=== PATIENT | male | born 1970 | race Caucasian/White ===

== ENCOUNTER → 2020-01-16 11:45 | Outpatient (BNVA) | payer SELFPAY | PROVIDERS: PCP Family Medicine; Referring Provider Family Medicine; Visit Provider Nurse Practitioner Family | DX: R09.81 Nasal congestion (principal); J98.8 Other specified respiratory disorders; B97.89 Other viral agents as the cause of diseases classified elsewhere | CPT/HCPCS: 87804 ==

== ENCOUNTER 2020-09-21 07:56 | Outpatient (CLI) | payer MEDICAID, SELFPAY ==
[2020-09-21] MEDS: iohexol 300 mg/mL 100 mL Btl IV (08:19)
--- NOTE | 2020-09-21 14:00 | CT_ITS ---
WS: [id number] CT CHEST TECHNIQUE: Contrast enhanced CT of the chest with coronal and sagittal reformatted images. CLINICAL INFORMATION: pericardial cyst COMPARISON: CT 8 19,019 DLP: 1034.[address] scans at [facility] use at least one of these dose optimization techniques: automat ed exposure control; mA and/or kV adjustment per patient size (includes targeted exams where dose is matched to clinical indication); or iterative reconstruction. FINDINGS: Stable focal nodule right upper lobe measuring 5.4 mm along the right minor fissure anteriorly unchan ged. Previously described pericardial cyst is also unchanged. This measures approximately 15.1 x 10.4 x 5.2 CCM. No acute pulmonary infiltrates. No focal pneumonia or pleural fluid. No mediastinal or hilar lymphadenopathy. Thyroid appears normal. No axillary lymphadenopathy. Diffuse fatty infiltration of the liver. Normal thoracic spine. CT/CT chest w con* [id number] IMPRESSION: 1. 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 2. Stable nodule along the right minor fissure anteriorly also unchanged measu ring 5.4 mm. 3. No other significant changes from previous. 4. Diffuse fatty infiltration liver.
== END 2020-09-21 07:57 | disposition home or self-care (01) ==
LOC: CT 08:02
PROVIDERS: Visit Provider Thoracic Surgery (Cardiothoracic Vascular Surgery)
DX: Q24.8 Other specified congenital malformations of heart (principal); K76.0 Fatty (change of) liver, not elsewhere classified
CPT/HCPCS: 71260

== ENCOUNTER → 2020-12-09 08:40 | Outpatient (BNVA) | payer MEDICAID, SELFPAY | PROVIDERS: Visit Provider Social Worker Clinical | DX: F41.1 Generalized anxiety disorder (principal) | CPT/HCPCS: 90834 ==

== ENCOUNTER → 2020-12-16 09:16 | Outpatient (BNVA) | payer MEDICAID, SELFPAY | PROVIDERS: Visit Provider Social Worker Clinical | DX: F41.1 Generalized anxiety disorder (principal) | CPT/HCPCS: 90834 ==

== ENCOUNTER → 2020-12-29 07:38 | Outpatient (BNVA) | payer MEDICAID, SELFPAY | PROVIDERS: Visit Provider Social Worker Clinical | DX: F41.1 Generalized anxiety disorder (principal) | CPT/HCPCS: 90834 ==

== ENCOUNTER → 2021-01-12 08:27 | Outpatient (BNVA) | payer MEDICAID, SELFPAY | PROVIDERS: Visit Provider Social Worker Clinical | DX: F41.1 Generalized anxiety disorder (principal) | CPT/HCPCS: 90834 ==

== ENCOUNTER → 2021-01-25 08:06 | Outpatient (BNVA) | payer MEDICAID, SELFPAY | PROVIDERS: Visit Provider Social Worker Clinical | DX: F41.1 Generalized anxiety disorder (principal) | CPT/HCPCS: 90834 ==

== ENCOUNTER → 2021-02-08 08:11 | Outpatient (BNVA) | payer MEDICAID, SELFPAY | PROVIDERS: Visit Provider Social Worker Clinical | DX: F41.1 Generalized anxiety disorder (principal) | CPT/HCPCS: 90834 ==

== ENCOUNTER → 2021-02-25 13:13 | Outpatient (BNVA) | payer MEDICAID, SELFPAY | PROVIDERS: Visit Provider Social Worker Clinical | DX: F41.1 Generalized anxiety disorder (principal) | CPT/HCPCS: 90834 ==

== ENCOUNTER → 2021-03-08 11:17 | Outpatient (BNVA) | payer MEDICAID, SELFPAY | PROVIDERS: Visit Provider Social Worker Clinical | DX: F41.1 Generalized anxiety disorder (principal) | CPT/HCPCS: 90834 ==

== ENCOUNTER → 2021-03-22 10:05 | Outpatient (BNVA) | payer MEDICAID, SELFPAY | PROVIDERS: Visit Provider Social Worker Clinical | DX: F41.1 Generalized anxiety disorder (principal) | CPT/HCPCS: 90834 ==

== ENCOUNTER → 2021-04-05 07:45 | Outpatient (BNVA) | payer MEDICAID, SELFPAY | PROVIDERS: Visit Provider Social Worker Clinical | DX: F41.1 Generalized anxiety disorder (principal) | CPT/HCPCS: 90834 ==

== ENCOUNTER → 2021-04-21 08:20 | Outpatient (BNVA) | payer MEDICAID, SELFPAY | PROVIDERS: Visit Provider Social Worker Clinical | DX: F41.1 Generalized anxiety disorder (principal) | CPT/HCPCS: 90834 ==

== ENCOUNTER → 2021-05-19 11:43 | Outpatient (BNVA) | payer OTHER, SELFPAY | PROVIDERS: Visit Provider Social Worker Clinical | DX: F41.1 Generalized anxiety disorder (principal) | CPT/HCPCS: 90834 ==

== ENCOUNTER → 2021-06-08 11:52 | Outpatient (BNVA) | payer OTHER, SELFPAY | PROVIDERS: Visit Provider Social Worker Clinical | DX: F41.1 Generalized anxiety disorder (principal) | CPT/HCPCS: 90834 ==

== ENCOUNTER → 2021-06-29 07:39 | Outpatient (BNVA) | payer OTHER, SELFPAY | PROVIDERS: Visit Provider Social Worker Clinical | DX: F41.1 Generalized anxiety disorder (principal) | CPT/HCPCS: 90834 ==

== ENCOUNTER → 2021-07-13 08:41 | Outpatient (BNVA) | payer OTHER, SELFPAY | PROVIDERS: Visit Provider Social Worker Clinical | DX: F41.1 Generalized anxiety disorder (principal) | CPT/HCPCS: 90834 ==

== ENCOUNTER → 2021-07-29 08:29 | Outpatient (BNVA) | payer OTHER, SELFPAY | PROVIDERS: Visit Provider Social Worker Clinical | DX: F41.1 Generalized anxiety disorder (principal) | CPT/HCPCS: 90834 ==

== ENCOUNTER → 2021-08-11 07:35 | Outpatient (BNVA) | payer OTHER, SELFPAY | PROVIDERS: Visit Provider Social Worker Clinical | DX: F41.1 Generalized anxiety disorder (principal) | CPT/HCPCS: 90834 ==

== ENCOUNTER → 2021-08-26 08:25 | Outpatient (BNVA) | payer OTHER, SELFPAY | PROVIDERS: Visit Provider Social Worker Clinical | DX: F41.1 Generalized anxiety disorder (principal) | CPT/HCPCS: 90834 ==

== ENCOUNTER → 2021-09-09 09:46 | Outpatient (BNVA) | payer OTHER, SELFPAY | PROVIDERS: Visit Provider Social Worker Clinical | DX: F41.1 Generalized anxiety disorder (principal) | CPT/HCPCS: 90834 ==

== ENCOUNTER → 2021-09-23 08:11 | Outpatient (BNVA) | payer OTHER, SELFPAY | PROVIDERS: Visit Provider Social Worker Clinical | DX: F41.1 Generalized anxiety disorder (principal) | CPT/HCPCS: 90832 ==

== ENCOUNTER → 2021-10-21 08:59 | Outpatient (BNVA) | payer OTHER, SELFPAY | PROVIDERS: Visit Provider Social Worker Clinical | DX: F41.1 Generalized anxiety disorder (principal) | CPT/HCPCS: 90834 ==

== ENCOUNTER → 2021-11-04 07:55 | Outpatient (BNVA) | payer OTHER, SELFPAY | PROVIDERS: Visit Provider Social Worker Clinical | DX: F41.1 Generalized anxiety disorder (principal) | CPT/HCPCS: 90834 ==

== ENCOUNTER → 2021-12-01 07:24 | Outpatient (BNVA) | payer OTHER, SELFPAY | PROVIDERS: Visit Provider Social Worker Clinical | DX: F41.1 Generalized anxiety disorder (principal) | CPT/HCPCS: 90834 ==

== ENCOUNTER → 2021-12-21 10:23 | Outpatient (BNVA) | payer OTHER, SELFPAY | PROVIDERS: Visit Provider Social Worker Clinical | DX: F41.1 Generalized anxiety disorder (principal) | CPT/HCPCS: 90832 ==

== ENCOUNTER → 2022-01-10 08:17 | Outpatient (BNVA) | payer OTHER, SELFPAY | PROVIDERS: Visit Provider Social Worker Clinical | DX: F41.1 Generalized anxiety disorder (principal) | CPT/HCPCS: 90834 ==

== ENCOUNTER → 2022-01-26 07:56 | Outpatient (BNVA) | payer OTHER, SELFPAY | PROVIDERS: Visit Provider Social Worker Clinical | DX: F41.1 Generalized anxiety disorder (principal) | CPT/HCPCS: 90834 ==

== ENCOUNTER → 2022-02-09 08:21 | Outpatient (BNVA) | payer OTHER, SELFPAY | PROVIDERS: Visit Provider Social Worker Clinical | DX: F41.1 Generalized anxiety disorder (principal) | CPT/HCPCS: 90832 ==

== ENCOUNTER → 2022-03-01 07:25 | Outpatient (BNVA) | payer OTHER, SELFPAY | PROVIDERS: Visit Provider Social Worker Clinical | DX: F41.1 Generalized anxiety disorder (principal) | CPT/HCPCS: 90834 ==

== ENCOUNTER → 2022-03-15 08:01 | Outpatient (BNVA) | payer OTHER, SELFPAY | PROVIDERS: Visit Provider Social Worker Clinical | DX: F41.1 Generalized anxiety disorder (principal) | CPT/HCPCS: 90834 ==

== ENCOUNTER → 2022-07-13 13:38 | Outpatient (BNVA) | payer MEDICAID, SELFPAY | PROVIDERS: Visit Provider Registered Nurse Neonatal Intensive Care | DX: N39.0 Urinary tract infection, site not specified (principal); Z71.1 Person with feared health complaint in whom no diagnosis is made | CPT/HCPCS: 81000 ==

== ENCOUNTER → 2022-07-14 11:05 | Outpatient (BNVA) | payer MEDICAID, SELFPAY | PROVIDERS: PCP Family Medicine; Visit Provider Family Medicine | DX: Z76.89 Persons encountering health services in other specified circumstances (principal); Z13.220 Encounter for screening for lipoid disorders; Z13.6 Encounter for screening for cardiovascular disorders; Z12.5 Encounter for screening for malignant neoplasm of prostate; K76.0 Fatty (change of) liver, not elsewhere classified | CPT/HCPCS: 80053; 80061; 84153; 84443; 85025; 85651 ==

== ENCOUNTER → 2022-07-20 14:29 | Outpatient (BNVA) | payer MEDICAID, SELFPAY | PROVIDERS: PCP Family Medicine; Visit Provider Podiatrist Foot & Ankle Surgery | DX: M19.171 Post-traumatic osteoarthritis, right ankle and foot (principal); M21.6X1 Other acquired deformities of right foot | CPT/HCPCS: 73610 ==

== ENCOUNTER → 2022-08-04 15:09 | Outpatient (BNVA) | payer MEDICAID, SELFPAY | PROVIDERS: PCP Family Medicine; Visit Provider Physician Assistant | DX: M47.27 Other spondylosis with radiculopathy, lumbosacral region (principal); M43.17 Spondylolisthesis, lumbosacral region; M43.5X7 Other recurrent vertebral dislocation, lumbosacral region | CPT/HCPCS: 72110 ==

== ENCOUNTER → 2022-08-16 15:30 | Outpatient (BNVA) | payer MEDICAID, SELFPAY | PROVIDERS: PCP Family Medicine; Visit Provider Orthopaedic Surgery | DX: M54.50 Low back pain, unspecified (principal); M54.6 Pain in thoracic spine; R20.0 Anesthesia of skin | CPT/HCPCS: 72070 ==

== ENCOUNTER → 2022-08-24 14:43 | Outpatient (BNVA) | payer MEDICAID, SELFPAY | PROVIDERS: PCP Family Medicine; Visit Provider Orthopaedic Surgery | DX: M25.512 Pain in left shoulder (principal) | CPT/HCPCS: 73030 ==

== ENCOUNTER → 2023-09-18 15:26 | Outpatient (BNVA) | payer MEDICAID, SELFPAY | PROVIDERS: PCP Family Medicine; Visit Provider Nurse Practitioner Family | DX: M17.12 Unilateral primary osteoarthritis, left knee (principal) | CPT/HCPCS: 73562 ==

== ENCOUNTER → 2023-10-16 13:49 | Outpatient (BNVA) | payer MEDICAID, SELFPAY | PROVIDERS: PCP Family Medicine; Visit Provider Nurse Practitioner Family | DX: G56.93 Unspecified mononeuropathy of bilateral upper limbs (principal); R20.0 Anesthesia of skin; G56.03 Carpal tunnel syndrome, bilateral upper limbs; M54.2 Cervicalgia | CPT/HCPCS: 72040 ==

== ENCOUNTER 2024-02-27 13:22 | Emergency (ER) | payer MEDICAID, SELFPAY ==
--- NOTE | 2024-02-27 13:24 | XRR_ITS ---
PROCEDURE INFORMATION: Exam: XR Chest Exam date and time: 02/27/2024 1:32 PM Age: 53 years old Clinical indication: Pain; Angina pectoris; Additional info: Cp TECHNIQUE: Imaging protocol: Radiologic exam of the chest. Views: 1 view. COMPARISON: CT chest w con* [id number] 09/21/2020 8:12 AM FINDINGS: Lungs: Unremarkable. No consolidation. Pleural spaces: Unremarkable. No pleural effusion. No pneumothorax. Heart/Mediastinum: Unremarkable. No cardiomegaly. Bones/joints: Unremarkable. XR/XR chest 1V portable [id number] IMPRESSION: No acute findings.
[2024-02-27 13:25] VITALS: BP 132/79; PULSE 57; TEMP 36.6; O2SAT 97; BMI 28.5
--- NOTE | 2024-02-27 13:25 | ECG_ITS ---
[facility] Test Date: 2024-02-27 Pat Name: Rashawn Zuleta Department: Room: Gender: Male Professional Services Consultant: : 1970 Requested By: Bhakti Guo Order Number: [id number] Adalgisa MD: Johanny Garcia M.D. Measurements Intervals [place] Rate: 49 P: 11 MS: 172 QRS: 35 QRSD: 84 T: 42 QT: 389 QTc: 352 Interpretive Statements SINUS BRADYCARDIA Compared to ECG 07/07/2019 21:23:23 Sinus rhythm no longer present Electronically Signed On 02-27-2024 21:23:31 CDT by Johanny Garcia M.D. [email or web address] [email or web address] community [email or web address] medical specialty [id number] f
[2024-02-27 14:08] LABS: Basophils # 0.1 10^3/uL (0.0-0.1); Basophils % 0.6 %; Eosinophils # 0.2 10^3/uL (0.0-0.8); Eosinophils % 2.8 %; Hematocrit 47.1 % (37-53); Lymphocytes # 2.5 10^3/uL (0.8-4.8); Lymphocytes % 32.9 %; Mean Corpuscular HGB Conc 33.1 g/dL (30-55); Mean Corpuscular Hemoglobin 30.6 pg (27-33); Mean Corpuscular Volume 92.5 fl (82-101); Mean Platelet Volume 9.1 fL (7.4-10.4); Monocytes # 0.6 10^3/uL (0.2-0.9); Monocytes % 7.4 %; Neutrophils # 4.31 10^3/uL (1.8-7.7); Neutrophils % 55.9 %; Nucleated Red Blood Cells % 0 %; Platelet Count 236 10^3/cmm (157-399); Red Blood Count 5.09 10^6/uL (3.85-5.65); Red Cell Distribution Width 12.8 % (12.1-15.1); White Blood Count 7.72 10^3/uL (3.29-11.43)
--- NOTE | 2024-02-27 14:11 | ED_ITS ---
HPI - Anxiety 2 General: Chief Complaint: Anxiety Stated Complaint: anxiety, chest pain Time Seen by Provider: 02/27/24 14:08 History of Present Illness: 53-year-old man with a history of anxiet y and cardiogenic syncope who presents the emergency room with shortness of breath, chest discomfort and anxiety for several days now. He said he was in town so he felt like he needed to get it checked. He says he thinks it is likely anxiety but was concerned because he was having chest discomfort. No fevers. No cough. No lower extremity swelling. No abdominal pain. No nausea or vomiting. Review of Systems 2 Narrative: Constitutional symptoms: Negative except as documented in HPI. Skin symptoms: Negative except as documented in HPI. Eye symptoms: Negative except as documented in HPI. ENMT symptoms: Negative except as documented in HPI. Respiratory symptoms: Negative except as documented in HPI. Cardiovascular symptoms: Negative except as documented in HPI. Gastrointestinal symptoms: Negative except as documented in HPI. Genitourinary symptoms: Negative except as documented in HPI. Musculoskeletal symptoms: Negative except as documented in HPI. Neurologic symptoms: Negative except as documented in HPI. Psychiatric symptoms: Negative except as documented in HPI. Endocrine symptoms: Negative except as documented in HPI. PFSH ED 2 PFSH: Medical History Generalized anxiety disorder Arthritis Social History (Updated 12/01/23 @ 10:22 by Edwina Valdez LPN) Smoking and tobacco/nicotine status: never used tobacco/nicotine Alcohol intake: never Current gender identity: Male Physical Exam 2 Narrative: EXAM NARRATIVE: General: Alert, no acute distress. Skin: Warm, dry. Head: Normocephalic, atraumatic. Neck: Supple, trachea midline. Eye: Extraocular movements are intact. Ears, nose, mouth and throat: mucosa moist. Cardiovascular: Regular, Normal peripheral perfusion. Respiratory: Lungs are clear to auscultation, respirations are non-labored, breath sounds are equal, Symmetrical chest wall expansion. Gastrointestinal: Soft, Nontender, Non distended, Normal bowel sounds. Musculoskeletal: Normal ROM, no deformity. Neurological: Alert and oriented, No focal neurological deficit observed. Psychiatric: Cooperative, appropriate mood & affect. Course 2 Vital Signs: Vital signs: Vital Signs Temperature 97.9 F 02/27/24 13:25 Pulse Rate 57 L 02/27/24 13:25 Blood Pressure 132/79 02/27/24 13:25 Pulse Oximetry 97 02/27/24 13:25 Oxygen Delivery Me thod Room Air 02/27/24 13:25 MDM - Anxiety Medical Decision Making Differential diagnosis for patient with chest pain includes but is not limited to and based on the above HPI, review of systems and physical exam: Pneumonia. unstable angina. angina. Acute coronary syndrome / NM. Pulmonary embolism. Costochondritis / musculoskeletal. Pleurisy. Pericarditis. Esophageal spasm. Pancreatis. Cholecystitis. Workup: Lab work, chest X-ray and EKG ordered to evaluate, rule in and rule out above pathologies. Lab Review: Laboratory results were reviewed and interpreted by myself the emergency room physician. Lab work is unremarkable. Cardiac markers are negative. EKG: Time 1325 PM rate 49. Sinus bradycardia, No ST-T changes, no ectopy, normal [place] & QRS intervals, This was reviewed and interpreted by myself the ER physician at 1328 PM. Chest x-ray: No acute process. No infiltrate. No pneumothorax. No cardiomegaly. This was reviewed and interpreted by myself the ER physician. Reexamination: Patient remained stable. No increased work of breathing. No altered mental status. Still a bit anxious.2 Lab Data 02/27/24 13:47 02/27/24 13:47 Radiology Impressions Chest X-Ray 02/27/24 13:24 IMPRESSION: No acute findings. Laboratory Results WBC 7.72 10^3/uL (3.29-11.43) 02/27/24 13:47 RBC 5.09 10^6/uL (3.85-5.65) 02/27/24 13:47 Hgb 15.60 g/dL (11.27-16.99) 02/27/24 13:47 Hct 47.1 % (37-53) 02/27/24 13:47 MCV 92.5 fl (82-101) 02/27/24 13:47 MCH 30.6 pg (27-33) 02/27/24 13:47 MCHC 33.1 g/dL (30-55) 02/27/24 13:47 RDW 12.8 % (12.1-15.1) 02/27/24 13:47 Plt Count 236 10^3/cmm (157-399) 02/27/24 13:47 MPV 9.1 fL (7.4-10.4) 02/27/24 13:47 Neut % (Auto) 55.9 % 02/27/24 13:47 Lymph % (Auto) 32.9 % 02/27/24 13:47 [place] % (Auto) 7.4 % 02/27/24 13:47 Eos % (Auto) 2.8 % 02/27/24 13:47 Baso % (Auto) 0.6 % 02/27/24 13:47 Neut # (Auto) 4.31 10^3/uL (1.8-7.7) 02/27/24 13:47 Lymph # (Auto) 2.5 10^3/uL (0.8-4.8) 02/27/24 13:47 [place] # (Auto) 0.6 10^3/uL (0.2-0.9) 02/27/24 13:47 Eos # (Auto) 0.2 10^3/uL (0.0-0.8) 02/27/24 13:47 Baso # (Auto) 0.1 10^3/uL (0.0-0.1) 02/27/24 13:47 Nucleated RBC % (auto) 0 % 02/27/24 13:47 Nucleated RBCs # 0.0 /100WBC 02/27/24 13:47 Sodium 143 mmol/L (136-145) 02/27/24 13:47 Potassium 4.7 mmol/L (3.5-5.1) 02/27/24 13:47 Chloride 104 mmol/L (98-107) 02/27/24 13:47 Carbon Dioxide 30 mmol/L (22-29) H 02/27/24 13:47 Anion Gap 13.7 (5-19) 02/27/24 13:47 BUN 8 mg/dL (6-20) 02/27/24 13:47 Creatinine 0.9 mg/dL (0.7-1.2) 02/27/24 13:47 GFR Calculation 87.6 mL/min (90-130) L 02/27/24 13:47 Glucose 105 mg/dL (65-115) 02/27/24 13:47 Calculated Osmolality 295 mOsm/kg (285-295) 02/27/24 13:47 Calcium 9.8 mg/dL (8.5-10.5) 02/27/24 13:47 Total Bilirubin 0.3 mg/dL (0.15-1.2) 02/27/24 13:47 AST 14 U/L (0-40) 02/27/24 13:47 ALT 22 U/L (0-41) 02/27/24 13:47 Alkaline Phosphatase 79 U/L (40-130) 02/27/24 13:47 Troponin T Baseline 8 ng/L (0-15) 02/27/24 13:47 Total Protein 7.0 g/dL (6.6-8.7) 02/27/24 13:47 Albumin 4.6 g/dL (3.5-5.2) 02/27/24 13:47 Globulin 2.4 g/dL (1.3-4.6) 02/27/24 13:47 Lipase 27 U/L (13-60) 02/27/24 13:47 All radiology interpretation(s) finalized by discharge Other Data Assessment and plan: - Discharged home - Discussed plan with patient. Answered any questions. - Evaluation and treatment of this problem were appropriate in the emergency setting. Discharge Plan Discharge Patient Disposition: Home Clinical Impression: Chest pain, non-cardiac, Anxiety Condition: Stable Prescriptions: No Action (DME) AFO to the right See Rx Instructions .Route .MEDSUPPLY Qty: 1 0RF Rx Instructions: As directed by [facility] (DME) Orthopedic shoes with a Rocker Bottom See Rx Instructions .Route .MEDSUPPLY Qty: 1 0RF Rx Instructions: As directed by [facility] Excedrin Migraine 250-250-65 mg Tablet 2 tab PO Q6H PRN (Reason: Migraine Headache) amoxicillin-pot clavulanate 875-125 mg tablet 1 tab PO BID Rx Instructions: for 10 days (rx filled 02/15/24) diclofenac sodium 50 mg tablet,delayed release (DR/EC) 50 mg PO BID PRN (Reason: Arthritis pain) Rx Instructions: WITH FOOD, do not take other NSAIDS Discharge Orders: Discharge ED (Routine); Ordered 02/27/24 Ordered By: Mercy Hurtado Referrals: Whitney Sifuentes MD [Primary Care Provider] - (You have been screened and evaluated and felt safe for discharge. Health conditions do change or evolve sometimes and as such it is important that you follow up with your Primary Doctor to be re checked, 3-5 days is a general good time frame for follow up. You are always welcome to return to the ED for re assessment if your symptoms are worsening or you have new concerns) Discharge Diet: Usual diet Discharge Activity: Resume usual activity Patient Instructions: Opioid Safety, Pain Management Coding Level of Care Code ED Mechanical Service Specialist for Kassandra Knapp
[2024-02-27 14:22] LABS: Alanine Aminotransferase 22 U/L (0-41); Albumin Level 4.6 g/dL (3.5-5.2); Alkaline Phosphatase 79 U/L (40-130); Anion Gap 13.7 (5-19); Aspartate Amino Transferase 14 U/L (0-40); Blood Urea Nitrogen 8 mg/dL (6-20); Calcium 9.8 mg/dL (8.5-10.5); Carbon Dioxide 30 mmol/L (22-29); Chloride 104 mmol/L (98-107); Creatinine Clr Calc Pharmacy 108.0528; Globulin 2.4 g/dL (1.3-4.6); Glomerular Filtration Rate 87.6 mL/min (90-130); Glucose 105 mg/dL (65-115); Lipase 27 U/L (13-60); Osmolality Calculated 295 mOsm/kg (285-295); Potassium 4.7 mmol/L (3.5-5.1); Sodium 143 mmol/L (136-145); Total Bilirubin 0.3 mg/dL (0.15-1.2)
--- NOTE | 2024-02-27 14:23 | PC.PHAR ---
pt states he takes care of his own medications-pt states not used kratom for a month-pt states still taking the augmentin rx filled 02/15/24 10d/s -
[2024-02-27 14:26] LABS: Troponin(5th) Baseline 8 ng/L (0-15)
--- NOTE | 2024-02-27 14:26 | PC.NURSE ---
Pt on bedside conveyor monitor
[2024-02-27 15:07] VITALS: BP 131/87; PULSE 58; O2SAT 97
== END 2024-02-27 15:08 | disposition home or self-care (01) ==
PROVIDERS: Emergency Medicine; Emergency Provider Emergency Medicine; PCP Family Medicine
DX: R07.89 Other chest pain (principal); F41.9 Anxiety disorder, unspecified
CPT/HCPCS: 36415; 71045; 80053; 83690; 84484; 85025; 93005; 99285

== ENCOUNTER → 2024-04-11 09:36 | Outpatient (BNVA) | payer MEDICAID, SELFPAY | PROVIDERS: PCP Family Medicine; Visit Provider Physician Assistant | DX: G56.03 Carpal tunnel syndrome, bilateral upper limbs (principal); G56.21 Lesion of ulnar nerve, right upper limb | CPT/HCPCS: 99214 ==

== ENCOUNTER 2024-05-22 08:18 | Day surgery (SDC) | payer MEDICAID, SELFPAY ==
[2024-05-22] VITALS (10 sets, daily range): BP systolic 109–152; BP diastolic 56–88; PULSE 61–70; RESP 17–18; TEMP 36.1–36.2; O2SAT 92–97; BMI 29.5
[2024-05-22] MEDS: sodium chloride 0.9% 1,000 ML 30 ML IV (09:14)
[2024-05-22] MEDS: acetaminophen 1,000 MG/100 ML PIGGYBACK 400 MG IV (09:15)
[2024-05-22] MEDS: scopolamine 1.5 Patch 1 PATCH TRANSDERMA (09:20)
--- NOTE | 2024-05-22 09:40 | ANES.PREANE2 ---
Pre-Anesthetic Assessment Height/Weight: Height 1.8 m Weight 96.162 kg Temp Pulse Resp BP Pulse Ox O2 Del Method 97.1 F L 65 17 152/57 92 Room Air 05/22/24 08:54 05/22/24 08:54 05/22/24 08:54 05/22/24 08:54 05/22/24 08:54 05/22/24 09:05 Operation Date: 05/22/24 09:45 Proposed Procedures p Carpal Tunnel Release 28805, 51272, G56.03, G56.20(Right) - Hugh Vidya, DO s Cubital Tunnel Release(Right) - Hugh Tehama, DO s Ulnar Nerve Transposition(Right) - Hugh Teh[place], DO Familial anesthetic complications: None Was Beta Sarah taken within 24 hours: N/A Was Clonidine taken within 24 hours: N/A Last intake: Intake Last Liquid Date 05/21/24 Last Liquid Time 22:00 Last Solid Date 05/21/24 Last Solid Time 22:00 Social Tobacco and No alcohol Kratom usage (herbal supplement) Exam alert, oriented x 3, clear to auscultation bilaterally and regular rate & rhythm Airway Mallampati: Class III Dentition: other (6 teeth) CV/HEM hx of vasovagal syncopal episodes Anesthetic Plan ASA status: 2 Anesthesia: General Risk of > 500 ml blood loss (7ml/kg in children): No Other Pertinent Information Kratom use (herbal supplement with opioid and stimulant-like effects) - patient may show resistance to anesthesia. Versed give pre-op Medications/Allergies Home Medications Medication Instructions Recorded Confirmed Last Taken Type AFO to the right #1 ea 07/20/22 04/11/24 Unknown Rx Orthopedic shoes with a Rocker #1 ea 07/20/22 04/11/24 Unknown Rx Bottom hydrocodone 5 mg-acetaminophen 325 1 tab PO Q6H PRN pain 5 days #20 05/22/24 Unknown Rx mg tablet tabs ondansetron 4 mg disintegrating 4 mg PO Q8H PRN nausea and 05/22/24 Unknown Rx tablet vomiting 3 days #9 tabs Allergies Allergy/AdvReac Type Severity Reaction Status Date / Time celecoxib [From Celebrex] Allergy Intermediate ADR/ALGY-Pa Verified 05/22/24 08:40 lpitations Current Medications Generic Name Dose Route Start Last Admin Trade Name Freq PRN Reason Stop Dose Admin Sodium Chloride 1,000 mls @ 30 mls/hr 05/22/24 08:30 05/22/24 09:14 Sodium Chloride 0.9% IV 05/23/24 08:29 30 mls/hr .Q24H SUJEY Administration PFSH Anesthesia Medical History Generalized anxiety disorder Arthritis Social History Smoking and tobacco/nicotine status: former use of tobacco/nicotine Alcohol intake: never Current gender identity: Male Data Anesthesia Cardiac Studies: No Data to Display
[2024-05-22] MEDS: midazolam 1 mg/mL INJ 2 mL 2 MG IVP (09:42)
--- NOTE | 2024-05-22 09:51 | W.PM.OPSFHP ---
Same Day Surgery H&P Indication for Procedure/HPI DATE OF PROCEDURE: May 22, 2024 CHIEF COMPLAINT/INDICATIONFOR SURGICAL PROCEDURE: Right carpal tunnel syndrome, right cubital tunnel syndrome PREOP DIAGNOSIS: Right carpal tunnel syndrome right cubital tunnel syndrome PLANNED PROCEDURE: Operation Date: 05/22/24 09:45 Proposed Procedures p Carpal Tunnel Release 51434, 98854, G56.03, G56.20(Right) - Hugh Cannon, DO s Cubital Tunnel Release(Right) - Hugh Vidya, DO s Ulnar Nerve Transposition(Right) - Hugh Vidya, DO Medications/Allergies* Allergies/Adverse Reactions Allergy/AdvReac Type Severity Reaction Status Date / Time celecoxib [From Celebrex] Allergy Intermediate ADR/ALGY-Pa Verified 05/22/24 08:40 lpitations Current Medications: Generic Name Dose Route Start Last Admin Trade Name Freq PRN Reason Stop Dose Admin Sodium Chloride 1,000 mls @ 30 mls/hr 05/22/24 08:30 05/22/24 09:14 Sodium Chloride 0.9% IV 05/23/24 08:29 30 mls/hr .Q24H SUJEY Administration Midazolam HCl 2 mg 05/22/24 08:27 05/22/24 09:42 Midazolam 1 Mg/Ml Inj 2 Ml IVP 2 mg ONCE PRN Administration Preop Anxiety Pertinent History/Comorbid Conditions* Medical History (Updated 03/06/24 @ 00:01 by JESSA Orlando) Generalized anxiety disorder Arthritis Social History Smoking and tobacco/nicotine status: former use of tobacco/nicotine Alcohol intake: never Current gender identity: Male Pertinent Exam Findings alert, oriented x 3, operative site marked and procedure specific exam findings Refer to detailed orthopedic examination on 04/11/2024. On examination today the right upper extremity has positive Tinel's over the elbow as well as over the cubital tunnel. He has decreased sensation over the median and ulnar nerve distribution noticeable thenar weakness on examination with still good intrinsic strength noted Recommendations Surgery/Procedure today Other Plans: Plan to proceed to the OR today for right carpal tunnel release and right cubital tunnel release with possible ulnar nerve transposition. Patient understands incidence procedure risk benefits complication alternatives of surgery and through shared decision make elects proceed with surgical intervention all questions have been answered at this time. Coding Level of Care Code Acute Code for Kassandra Knapp
[2024-05-22] MEDS: ceFAZolin 2,000 MG in sodium chloride 0.9% (plus) 50 ML 100 MG IV (09:54)
[2024-05-22] MEDS: lidocaine-epi 1% 20 mL INJ 5 ML INJECTION (10:29)
[2024-05-22] MEDS: ROPivacaine 0.5% SDV 30 mL 25 MG INJECTION (10:29)
--- NOTE | 2024-05-22 11:41 | P.BOP_ITS ---
Date of Procedure: 05/22/2024 Surgeon: Hugh Dasilva DO Php Website Developer(s): None Procedure(s) performed: Right carpal tunnel release Right cubital tunnel release (ulnar nerve decompression at the elbow) Right ulnar nerve transposition Findings of the procedure(s): Patient found to have right carpal tunnel syndrome right cubital tunnel syndrome with also a subluxating ulnar nerve underwent procedure as planned without issues or complications with a ulnar nerve transposition placed in a posterior long-arm splint plan to keep this on in place and immobilized for the next 10 to 14 days. Will have patient be seen by OT hand therapy this coming Monday for drain removal. Patient understands agrees current plan. Questions answered. Estimated blood loss: 10 mL Specimen(s) removed: None Post-operative diagnosis: Right cubital tunnel syndrome, right carpal tunnel syndrome, right subluxating ulnar nerve
--- NOTE | 2024-05-22 11:42 | PM.OP ---
Operative Report Date of procedure: May 22, 2024 Surgeon: Hugh Dasilva DO Procedure: Procedure: Preoperative diagnosis: Right carpal tunnel syndrome Right?cubital?tunnel syndrome post-op diagnosis:? 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 Patient had NCS findings consistent with this.? ?On my examination in the office patient findings are consistent with this preoperative diagnosis. We had detailed discussion in office about continued nonoperative intervention versus operative intervention.? Patient understands the risk benefits complications alternatives to surgical and nonsurgical treatment options.? Patient understands the risks include but not limited to make it better, make it worse, infection, permanent injury to nerve, decreased function and sensation to the hand with persistent weakness.? Given these risks patient understands and agrees to proceed with current plan.? Patient elects to proceed with a surgical mention. All questions answered. Procedure: Patient was seen and evaluated in the preoperative holding area.? The consent that was filled out in office was reviewed with patient. Correct extremity was then marked.? Patient was seen evaluated by the preoperative team as well as anesthesia department.? Once cleared for surgery patient was then taken to the operative suite and?transported onto the operative table all bony prominences were well-padded and patient was secured to the table.? Right upper extremity was placed on an armboard.? Patient then underwent anesthesia per the anesthesia department. The Right upper extremity tourniquet was applied. Patient's Right upper extremity was then prepped and draped in standard orthopedic fashion.? This point a final timeout was performed. Patient received appropriate preop antibiotics. Esmarch tourniquet was used to exsanguinate the operative extremity and was insufflated to 250 mmHg.? I started with the carpal tunnel release first.? I made a standard open carpal tunnel release starting with the distal most extent in the palm at the Orozco's cardinal line and the incision line was made in line with the fourth ray and ended just distal to the wrist crease.? Sharp scalpel incision was made through skin and subcutaneous tissue I then utilizing self retainer then began to dissect with dissection scissors split longitudinally the palmar fascia.? Next I then utilizing my product development assistant Fabio retractors subsequently utilizing scalpel feathered through the palmaris brevis as well as through the?transverse carpal ligament distally.? Once I encountered the floor of the?transverse carpal ligament and entered into the carpal tunnel I then switched to dissection scissors.? Carefully released the distal extent of the?transverse carpal ligament to the palmar fat.? Care was to protect the recurrent branch and not injured this during this part of the case.? Next I then placed a [place] underneath the?transverse carpal ligament proximally to protect the nerve in the carpal tunnel contents.? And then I subsequently under loupe magnification utilize my dissection scissors to release the?transverse carpal ligament into the antebrachial fascia under direct visualization with care to keep my scissors with a curved ulnarly away from the palmar cutaneous branch.? The?transverse carpal was then completely decompressed proximally and a [place] was then placed both distally and proximally throughout the carpal tunnel and had complete decompression of the nerve.? The nerve did appear to have hourglass shape as it went through the carpal tunnel.? With significant irritation noted around the nerve.? No masses were noted within the contents of the carpal tunnel.? This completed the carpal tunnel release and then I subsequently irrigated the wound bed and placed a wet Ray-Julia into the incision for later closure. Standard curvilinear incision was made centering over the ulnar nerve between the medial epicondyle and olecranon process.? Sharp scalpel excision through skin and subcutaneous tissue was performed.? Once I encountered subcutaneous tissue I then utilized dissection scissors to spread in the path of the [facility] and care was made to protect any nerve branches throughout this case.? I then utilized a scalpel to complete my dissection directly on over to the flexor pronator mass and elevated this fat tissue directly off of the fascia.? I started my dissection of the ulnar nerve the nerve proximally.? Once identified I then utilized Littler dissection scissors and decompress the nerve completely and proximally and utilized blunt dissection to make sure there was no entrapment proximally..? Once decompressed proximally I then traced the nerve distal through Cage's ligament and as it entered the FCU fascia aponeurosis and completed by decompression and ulnar nerve neurolysis distally.? The nerve was completely released in situ no areas of entrapment I was able to place my finger distally and proximally with no areas entrapment along the nerve.? At this point in time by in situ release was completed I then subsequently took the elbow through range of motion and subluxation was noted over the medial epicondyle and plan for ulnar nerve?transposition?was made.? ?I thoroughly irrigated the nerve throughout the case to prevent it from drying out. Of note the ulnar nerve had significant irritation and inflammation.? Next while protecting the nerve as well as care to not injure any venous structures I then excised the intermuscular septum proximally with bipolar electrocautery.? This allowed for there to be no entrapment proximally with my?transposition.? Next I then performed my standard Z- flap into the fascia.? This created a large thick fascial band that would be sutured to secure the ulnar nerve when its been?transposed.? Once the incision was made just through the fascia I then mobilized just the fascia and freed the muscle belly off of this.? I then sequentially excised the T and Y shaped fascial bands throughout the flexor pronator mass to prevent any type of bandage strip structure irritating the?transposition.? At this point I had only soft tissue and muscle belly with which the ulnar nerve could rest.? I had to do a small excision of the muscle belly distally to create a nice trough for the nerve to lie.? At this point I then mobilized the nerve and this was?transposed into the flexor pronator insertion under the fasica flaps.? There was no evidence of kinking/tethering of the nerve.? this was significantly redundant and lax with no signs of tension or entrapment.? I then utilized a 3-0 Ethibond suture and approximated the fascia flaps that was created and the Right knee okay okay secured with horizontal interrupted mattress stitches.? I was able to place 2 fingers under the repair with no evidence of entrapment and the elbow was taken through range of motion and no areas of entrapment or kinking were noted on the nerve and the nerve was redundant relaxed in all ranges of motion.? This completed my ulnar nerve decompression of the?cubital?tunnel as well as ulnar nerve?transposition.? Wound bed was then thoroughly irrigated.? Tourniquet was deflated.? Maintained exact hemostasis with bipolar electrocautery.? I did place a gabriel drain to prevent hematoma formation. As result the skin was reapproximated with interrupted Vicryl subcutaneous suture 3-0.? I next utilized a running horizontal mattress stitch with 3-0 nylon.? Extremity was then cleaned and the incision was then covered with Xeroform 4 x 4's ABD Curlex and soft roll and a?cubital?splint was then applied with an Adolfo wrap.? Patient was then awakened from anesthesia and taken to PACU in stable condition. Disposition: Patient taken to PACU in stable condition.? Patient given appropriate discharge instructions as well as pain medication.? We will get Patient in with OT hand therapy for splint takedown dressing change and drain pull within in next 2 days. Patient will see me in office in 2 weeks.? pt understands? if they has any questions they can contact the office.
[2024-05-22] MEDS: HYDROcodone-acetaminophen 5-325 mg Tablet 1 TAB PO (12:35)
--- NOTE | 2024-05-22 13:05 | ANE.PACU2 ---
Inpatient post-anesthesia follow up: Airway intact: Yes Vital signs: Temperature 97.1 F Pulse Rate 62 Respiratory Rate 17 Blood Pressure 122/64 Pulse Oximetry 94 Oxygen Delivery Me thod Room Air Oxygen Flow Rate 6 Fraction of Inspir ed Oxygen Hydration adequate: Yes Nausea and vomiting: No Pain level: 1 Mental status: Baseline
== END 2024-05-22 13:06 | disposition home or self-care (01) ==
PROVIDERS: PCP Family Medicine; Visit Provider Student in an Organized Health Care Education/Training Program
PROC: (CPT 64721; principal; 2024-05-22 09:45)
PROC: (CPT 64718; 2024-05-22 09:45)
PROC: (CPT 64718; 2024-05-22 09:45)
DX: G56.01 Carpal tunnel syndrome, right upper limb (principal); G56.21 Lesion of ulnar nerve, right upper limb; F41.1 Generalized anxiety disorder; M19.90 Unspecified osteoarthritis, unspecified site; Z87.891 Personal history of nicotine dependence
CPT/HCPCS: 64718; 64721; J0131; J0690; J2250; J2704; J2795; J3010; J7030

== ENCOUNTER 2024-05-24 06:00 | Outpatient (RCR) | payer MEDICAID, SELFPAY | END 2024-06-19 23:59 | disposition home or self-care (01) | LOC: SOT 06:00 | PROVIDERS: Visit Provider Student in an Organized Health Care Education/Training Program | DX: Z47.89 Encounter for other orthopedic aftercare (principal) | CPT/HCPCS: 97760; L3763 ==

== ENCOUNTER → 2024-08-28 08:39 | Outpatient (BNVA) | payer MEDICAID, SELFPAY | PROVIDERS: PCP Family Medicine; Visit Provider Podiatrist Foot & Ankle Surgery | DX: M19.171 Post-traumatic osteoarthritis, right ankle and foot (principal); M79.672 Pain in left foot; M21.6X9 Other acquired deformities of unspecified foot; L60.3 Nail dystrophy; M72.2 Plantar fascial fibromatosis; M76.62 Achilles tendinitis, left leg | CPT/HCPCS: 73610; 73630 ==

== ENCOUNTER → 2024-12-31 09:23 | Outpatient (BNVA) | payer MEDICAID, SELFPAY | PROVIDERS: PCP Family Medicine; Visit Provider Family Medicine | DX: Z13.1 Encounter for screening for diabetes mellitus (principal); Z13.220 Encounter for screening for lipoid disorders; Z13.6 Encounter for screening for cardiovascular disorders | CPT/HCPCS: 80053; 80061; G0103 ==

== ENCOUNTER → 2025-07-08 12:48 | Outpatient (BNVA) | payer MEDICAID, SELFPAY | PROVIDERS: PCP Family Medicine; Visit Provider Podiatrist Foot & Ankle Surgery | DX: M25.571 Pain in right ankle and joints of right foot (principal); M19.171 Post-traumatic osteoarthritis, right ankle and foot; M21.6X1 Other acquired deformities of right foot; M21.6X2 Other acquired deformities of left foot | CPT/HCPCS: 99214 ==

== ENCOUNTER → 2025-07-22 15:45 | Outpatient (BNVA) | payer MEDICAID, SELFPAY | PROVIDERS: PCP Family Medicine; Visit Provider Student in an Organized Health Care Education/Training Program | DX: M25.512 Pain in left shoulder (principal); G89.29 Other chronic pain; M75.42 Impingement syndrome of left shoulder | CPT/HCPCS: 20610; 73030; 99214; J3301; J9999 ==

== ENCOUNTER → 2025-07-30 14:43 | Outpatient (BNVA) | payer MEDICAID, SELFPAY | PROVIDERS: PCP Family Medicine; Visit Provider Student in an Organized Health Care Education/Training Program | DX: M25.531 Pain in right wrist (principal); M25.532 Pain in left wrist; G56.02 Carpal tunnel syndrome, left upper limb | CPT/HCPCS: 73130; 99214 ==

== ENCOUNTER 2025-08-29 05:45 | Day surgery (SDC) | payer MEDICAID, SELFPAY ==
[2025-08-29] VITALS (9 sets, daily range): BP systolic 107–133; BP diastolic 67–88; PULSE 53–66; RESP 16–18; TEMP 36.1–36.3; O2SAT 16–98; BMI 32.1
[2025-08-29] MEDS: acetaminophen 1,000 MG/100 ML PIGGYBACK 400 MG IV (06:14)
--- NOTE | 2025-08-29 06:56 | ANES.PREANE2 ---
Pre-Anesthetic Assessment Height/Weight: Height 1.8 m Weight 104.326 kg Temp Pulse Resp BP Pulse Ox O2 Del Method 97.0 F L 65 18 129/88 94 Room Air 08/29/25 06:03 08/29/25 06:03 08/29/25 06:03 08/29/25 06:03 08/29/25 06:03 08/29/25 06:03 Operation Date: 08/29/25 07:00 Proposed Procedures p Carpal Tunnel Release(Left) - Hugh Bracken, DO Familial anesthetic complications: None Was Beta Sarah taken within 24 hours: N/A Was Clonidine taken within 24 hours: N/A Last intake: Intake Last Liquid Date 08/28/25 Last Liquid Time 23:30 Last Solid Date 08/28/25 Last Solid Time 23:30 Social No alcohol and No tobacco Exam alert, oriented x 3, clear to auscultation bilaterally and regular rate & rhythm Airway Mallampati: Class IV CV/HEM Arrythmia (bradycardia) pericardial cyst Able to achieve > 4 METS, does 45 minutes on the elliptical Neuropsych vasovagal syncope Anesthetic Plan ASA status: 2 Anesthesia: Local Only Other Pertinent Information Patient complaining of heart burn after a heavy meal and turmeric-laden chicken broth ingestion last night. Reaching up to throat. Bicitra PO, reglan 10 mg IV, and pepcid 20 mg IV administered. Discussed possibility of local only to avoid risk of aspiration. Patient agreeable to local only with GETA as back-up in event of inability to tolerate local only. Medications/Allergies Home Medications ?Medication ?Instructions ?Recorded ?Confirmed ?Last Taken ?Type Kratom 1 tab PO DAILY 05/22/24 08/29/25 08/22/25 History diclofenac sodium 1 % topical gel 4 g topical QID #100 grams 10/30/24 08/29/25 Unknown Rx Orthopedic shoes with a Rocker #1 ea 01/29/25 07/30/25 Unknown Rx Bottom AFO to the right(gaulet) with #1 ea 07/08/25 07/30/25 Unknown Rx orthopedic rocker bottom shoe ondansetron 4 mg disintegrating 4 mg PO Q8H Nausea and vomiting 08/29/25 Unknown Rx tablet postop 3 days #9 tabs tramadol 50 mg tablet 50 mg PO Q6H PRN pain 5 days #20 08/29/25 Unknown Rx tabs Allergies Allergy/AdvReac Type Severity Reaction Status Date / Time celecoxib (From Celebrex) Allergy Intermediate ADR/ALGY-Pa Verified 08/29/25 05:56 lpitations Current Medications Generic Name Dose Route Start Last Admin Trade Name Freq PRN Reason Stop Dose Admin Sodium Chloride 1,000 mls @ 30 mls/hr 08/29/25 06:00 08/29/25 06:14 Sodium Chloride 0.9% IV 08/30/25 05:59 30 mls/hr .Q24H SUJEY Administration PFSH Anesthesia Medical History (Updated 08/03/25 @ 22:15 by Hugh Dasilva DO) Generalized anxiety disorder Arthritis Social History Smoking and tobacco/nicotine status: former use of tobacco/nicotine Alcohol intake: never Current gender identity: Male
[2025-08-29] MEDS: metoclopramide 5 mg/mL SDV 2 mL 10 MG IVP (07:02)
[2025-08-29] MEDS: citric acid-sodium citrate 30 mL UDC PO (07:02)
--- NOTE | 2025-08-29 07:04 | W.PM.OPSUD ---
Surgery/Procedure H&P Update DATE OF PROCEDURE: August 29, 2025 DATE H&P PERFORMED: 07/30/25 H&P UPDATE INFORMATION: I have reviewed H&P completed within last 30 days, I have examined patient prior to procedure and No changes to prior documentation PREOP DIAGNOSIS: Left carpal tunnel syndrome PRIMARY INDICATION FOR PROCEDURE: Left carpal tunnel syndrome PLANNED PROCEDURE: Operation Date: 08/29/25 07:00 Proposed Procedures p Carpal Tunnel Release(Left) - Hugh Dasilva DO
[2025-08-29] MEDS: ceFAZolin 2,000 MG in sodium chloride 0.9% (plus) 50 ML 100 MG IV (07:07)
[2025-08-29] MEDS: ROPivacaine 0.5% SDV 30 mL 150 MG INJECTION (07:35)
[2025-08-29] MEDS: lidocaine-epi 1% 20 mL INJ INJECTION (07:35)
--- NOTE | 2025-08-29 07:45 | W.PM.BPON ---
Date of Procedure: [08/29/2025] Surgeon: [Hugh Dasilva DO] Blood Coordinator(s): [None] Procedure(s) performed: Left carpal tunnel release Findings of the procedure(s): [Underwent procedure as planned without issues or complications taken recovery in stable condition] Estimated blood loss: [3 mL] Specimen(s) removed: [None] Post-operative diagnosis: [Left carpal tunnel syndrome]
--- NOTE | 2025-08-29 07:46 | PM.OP ---
Operative Report Date of procedure: September 02, 2025 Surgeon: Hugh Dasilva DO Procedure: Preop Diagnosis: Left Carpal Tunnel Syndrome Post-op diagnosis: Same Procedure done: 1. Left carpal tunnel release Surgeon: Hugh Dasilva DO Anesthesia: Local only Estimated blood loss: [3]mL Tourniquet time [8]minutes IV fluids: See anesthesia record Complications: None Findings: See operative report narrative Condition: stable Disposition: same day Brief History: Patient is a pleasant [55]year-old [male] with left carpal tunnel syndrome. Patient has been worked up in the outpatient setting findings and physical examination consistent with this. Patient nerve conduction studies consistent with carpal tunnel syndrome. We detailed out patient's risk benefits complication alternatives with surgical and nonsurgical treatment options. Through shared decision making, patient agrees to proceed with surgical intervention of the left carpal tunnel release . Patient understands and agrees with current plan. All questions answered. Patient elects to proceed with surgical intervention with carpal tunnel release. Procedure: Patient seen and evaluated in the preoperative holding area. Consent was reviewed and signed with patient. Correct extremity was marked. Patient was seen evaluated by the anesthesia department once cleared for surgery was brought back to the operative suite. Patient elected to proceed after discussion with anesthesia on a local only carpal tunnel release. Patient was kept on [facility] in supine position all bony prominences were well-padded patient properly secured to the bed. Left upper extremity was then placed onto an armboard. A nonsterile tourniquet was applied to the left upper arm. Patient was hooked up to the monitors and monitored by the nursing staff no anesthesia given as this was a local only procedure. Patient's left upper extremity was then prepped and draped in standard orthopedic fashion. Final timeout performed. Patient received appropriate preoperative antibiotics. Under sterile aseptic technique patient received local anesthesia over the preplanned carpal tunnel incision site. Injection was allowed to set up for 5 to 10 minutes prior to make an incision once patient was appropriate anesthetized. Esmarch was used to exsanguinate the left upper extremity and tourniquet was insufflated to 250 mmHg. A standard mini open left carpal tunnel incision was made. Starting distally at Orozco's cardinal line in line with the fourth ray extending proximally distal to the wrist crease centered over the carpal tunnel. Sharp scalpel incision was made through skin and subcutaneous tissue. Self-retaining retractor was placed and the palmar fascia was identified. This was then split longitudinally and direct visualization of the transverse carpal ligament was then made. I then utilizing scalpel feathered through the transverse carpal ligament until I entered the floor of the transverse carpal tunnel ligament into the carpal tunnel. Next I switched to dissection scissors and completed my release of the transverse carpal ligament distally with care to protect the recurrent motor branch. I completely released into the palmar fat and until no entrapment was noted distally. Care was made to protect the superficial palmar arch during my distal dissection. Next, nasal speculum placed proximally for retraction of soft tissue on top of the Transverse carpal ligament. Next the contents of the carpal tunnel where protected and and subsequently utilizing dissection scissors under loupe magnification completely released the transverse carpal ligament proximally into the antebrachial fascia. Care was made to protect the palmar cutaneous branch by keeping my scissors curved ulnarly. Once completely released, I then placed my [place] and had appropriate decompression of the carpal tunnel proximally as well as distally. I then inspected the contents of the carpal tunnel which showed an hourglass shape of the median nerve showing its compression. No masses were noted. Tendons appeared healthy. Wound was then thoroughly irrigated. Tourniquet deflated. Hemostasis satisfactory with bipolar electrocautery. I then closed the incision with interrupted nylon stitches. Xeroform 4 x 4's and a bulky soft dressing was applied to the left upper extremity. Patient was taken to recovery in stable condition. Patient tolerated procedure without complications. Disposition: Patient taken to recovery in stable condition recovering well. Dressing clean dry and intact. Patient will receive appropriate discharge instructions as well as pain medication postoperatively. Patient to follow-up with me in the office in 2 weeks. They understand they may be weightbearing as tolerated to the left hand. Patient should keep incision clean dry and intact. Patient understands if any questions or concerns may contact the office.
--- NOTE | 2025-08-29 08:20 | ANE.PACU2 ---
Inpatient post-anesthesia follow up: Airway intact: Yes Vital signs: Temperature 97.4 F Pulse Rate 62 Respiratory Rate 18 Blood Pressure 130/82 Pulse Oximetry 93 Oxygen Delivery Me thod Room Air Oxygen Flow Rate Fraction of Inspir ed Oxygen Hydration adequate: Yes Nausea and vomiting: No Pain level: 1 Mental status: Baseline
== END 2025-08-29 08:20 | disposition home or self-care (01) ==
PROVIDERS: PCP Family Medicine; Visit Provider Student in an Organized Health Care Education/Training Program
PROC: (CPT 64721; principal; 2025-08-29 07:00)
DX: G56.02 Carpal tunnel syndrome, left upper limb (principal); I49.9 Cardiac arrhythmia, unspecified; F41.9 Anxiety disorder, unspecified; Z87.891 Personal history of nicotine dependence
CPT/HCPCS: 64721; J0131; J0690; J1100; J2250; J2405; J2704; J2765; J2795; J3010; J3490; J7030; J9999

== ENCOUNTER → 2025-09-10 08:02 | Outpatient (BNVA) | payer MEDICAID, SELFPAY | PROVIDERS: PCP Family Medicine; Visit Provider Physician Assistant | DX: Z98.890 Other specified postprocedural states (principal) | CPT/HCPCS: 99024 ==

== ENCOUNTER 2025-10-20 10:06 | Emergency (ER) | payer MEDICAID, SELFPAY ==
[2025-10-20 10:06] VITALS: BP 129/57; PULSE 55; TEMP 36.5; O2SAT 99; BMI 32.8
--- NOTE | 2025-10-20 10:42 | XR_ITS ---
WS: [id number] Exam: XR ribs RT 2V* [id number] Date/Time of Exam: 10/20/2025 10:47 AM Reason For Exam: rib pain/trauma Probable nondisplaced fracture of the lateral RIGHT 10th rib. No other rib fractures are seen. The RIGHT lung is fully inflated and clear. No pleural or pulmonary reactive changes. Normal cardiomediastinal silhouette. LEFT lung is clear also. XR/XR ribs RT 2V* [id number] IMPRESSION: 1. Probable nondisplaced fracture of the RIGHT lateral 10th rib. 2. No other significant finding.
--- NOTE | 2025-10-20 11:01 | W.ED.BACK ---
HPI - Back Pain/Injury General: Chief Complaint: Back Pain/Injury Stated Complaint: R side rib pain Time Seen by Provider: 10/20/25 10:33 Source: patient Mode of arrival: ambulatory Limitations: no limitations History of Present Illness: Patient is a 55-year-old male who presents the emergency department complaining of right lateral rib pain for the past few days. He states that his was stepping on his back in an attempt to crack it and that she stepped on him wrong and he thinks he fractured his rib. States he is just here to obtain an x-ray to make sure it is not cracked. He has not taken any medications. States pain with inspiration, but does not feel short of breath. There is no bruising reported. MD elicited complaint: other (right rib pain) Onset (ago): day(s) Timing: constant Exacerbating factors: deep breaths (inspiration) Associated symptoms: Deny abdominal pain, difficulty walking, fecal incontinence, fever(s) or syncope Related Data Home Medications ?Medication ?Instructions ?Recorded ?Confirmed Kratom 1 tab PO DAILY 05/22/24 09/10/25 Previous Rx's ?Medication ?Instructions ?Recorded diclofenac sodium 1 % topical gel 4 g topical QID #100 grams 10/30/24 Orthopedic shoes with a Rocker #1 ea 01/29/25 Bottom AFO to the right(gaulet) with #1 ea 07/08/25 orthopedic rocker bottom shoe hydrocodone 7.5 mg-acetaminophen 1 tab PO Q8H PRN pain #20 tabs 10/20/25 325 mg tablet Allergies Allergy/AdvReac Type Severity Reaction Status Date / Time celecoxib (From Celebrex) Allergy Intermediate ADR/ALGY-Pa Verified 10/20/25 10:14 lpitations Review of Systems General: Reports: 10 or more systems reviewed and unremarkable except in HPI and below Const: Reports: other (denies trauma); Denies: fever(s), change in weight or night sweats Card: Denies: chest pain, lightheadedness or syncope Resp: Denies: dyspnea GI: Denies: abdominal pain or fecal incontinence : Denies: urinary incontinence Musc: Reports: other (right rib pain); Denies: neck pain, back pain or extremity pain Skin/Breast: Denies: rash or skin pain Neuro: Denies: headache(s), numbness in extremities, weakness in extremities, sensory changes, lack of coordination, difficulty walking, frequent falls or involuntary movements PFSH ED PFSH: Medical History Generalized anxiety disorder Arthritis Social History Smoking and tobacco/nicotine status: former use of tobacco/nicotine Alcohol intake: never Current gender identity: Male Physical Exam Const: COMMON NORMALS: no acute distress and no limitations GENERAL APPEARANCE: cooperative, comfortable and well developed ORIENTATION/CONSCIOUSNESS: Yes awake HENMT: COMMON NORMALS: normocephalic, atraumatic and hearing grossly normal bilaterally HEAD & SCALP: normocephalic and atraumatic Eye: COMMON NORMALS: Equal, round and reactive pupils present, EOMs intact bilaterally and conjunctivae normal CONJUNCTIVA: Yes conjunctivae normal PUPIL: Yes Equal, round and reactive pupils present Neck/C-Spine: COMMON NORMALS: full ROM, supple and no JVD Chest: OTHER: Tender to palpation to right lateral chest wall. No step-off deformity. No bruising. Resp: COMMON NORMALS: normal respiratory effort, No retractions, No use of accessory muscles and clear to auscultation bilaterally AUSCULTATION: clear to auscultation bilaterally Cardio: COMMON NORMALS: no JVD, regular rate, regular rhythm, No clicks present (Cardio), No murmurs present (Cardio) and No rub (Cardio) RATE: regular rate RHYTHM: regular rhythm Back/Pelvis: COMMON NORMALS: thoracic and lumbar spine normal to inspection, no thoracic nor lumbar tenderness and thoraco-lumbar ROM normal Extremity: COMMON NORMALS: normal to inspection, full ROM and capillary refill normal Skin: COMMON NORMALS: no rashes or lesions noted GENERAL SKIN EXAM: no rashes or lesions noted Course Vital Signs: Vital signs: Vital Signs Temperature 97.7 F 10/20/25 10:06 Pulse Rate 55 L 10/20/25 10:06 Blood Pressure 129/57 10/20/25 10:06 Pulse Oximetry 99 10/20/25 10:06 Oxygen Delivery Me thod Room Air 10/20/25 10:06 MDM - Back Pain/Injury Medical Decision Making Patient presented with right lateral rib pain after his was stepping on his back to crack it. Pain with inspiration with history, and on exam there is tender to palpation to right lateral rib cage with no bruising or step-off deformity. X-ray of the ribs showing probable right lateral 10th rib fracture, correlating this with the exam likely that this is a rib fracture. Nondisplaced, and only 1 fracture meaning we can treat at home with proper analgesia. Patient had denied pain medications here as he states he had to drive, medications will be sent to pharmacy he is encouraged to have proper pulmonary hygiene and return with any new or worsening. Labs Radiology Impressions Ribs X-Ray 10/20/25 10:42 IMPRESSION: 1. Probable nondisplaced fracture of the RIGHT lateral 10th rib. 2. No other significant finding. All radiology interpretation(s) finalized by discharge Discharge Plan Discharge Patient Disposition: Home Clinical Impression: Fracture of right tenth rib Condition: Stable Prescriptions: New hydrocodone-acetaminophen 7.5-325 mg tablet 1 tab PO Q8H PRN (Reason: pain) Qty: 20 0RF Discontinued hydrocodone-acetaminophen 5-325 mg tablet 1 tab PO Q6H PRN (Reason: pain) 5 Days Qty: 20 0RF No Action (DME) AFO to the right(gaulet) with orthopedic rocker bottom shoe See Rx Instructions .Route .MEDSUPPLY Qty: 1 0RF Rx Instructions: As directed by [facility] diclofenac sodium 1 % gel 4 g topical QID Qty: 100 5RF Rx Instructions: Apply to single knee, ankle, foot; for foot includes sole/toes/top of foot TOPICALLY TO AFFECTED AREA 4 TIMES PER DAY AT 07,11,17,21 (DME) Orthopedic shoes with a Rocker Bottom See Rx Instructions .Route .MEDSUPPLY Qty: 1 0RF Rx Instructions: As directed by [facility] Kratom 1 tab PO DAILY Discharge Orders: Discharge ED (Routine); Ordered 10/20/25 Ordered By: Jett Chand Referrals: Karlos Sanabria [Primary Care Provider, Family Practice] Patient Instructions: Patient Portal & [facility] Instructions Activity Restrictions/Additional Instructions: Rib Fracture Discharge Instructions Your Diagnosis You have been diagnosed with a nondisplaced fracture of your right 10th rib. This means you have a broken rib that is still in proper position. While this injury is painful, it will heal on its own over the next 6-8 weeks. Pain Management Take your pain medications as prescribed: - [place] (hydrocodone/acetaminophen) 7.5 mg/325 mg: Take 1-2 tablets by mouth every 4-6 hours as needed for pain - This medication contains both an opioid (hydrocodone) and acetaminophen (Tylenol) - Do not take more than 8 tablets in 24 hours - Do not take additional Tylenol products while taking [place], as this can cause liver damage - This medication may cause drowsiness, dizziness, or constipation - Do not drive or operate machinery while taking this medication - Do not drink alcohol while taking this medication Additional pain control measures: - Take ibuprofen (Advil, Motrin) 400-600 mg by mouth every 6-8 hours with food to reduce inflammation and pain - You may take this along with your [place] - Do not take if you have stomach ulcers, kidney problems, or were told to avoid NSAIDs - Apply ice packs to the injured area for 15-20 minutes at a time, several times per day for the first few days - Use a pillow to support your chest when coughing or moving Breathing Exercises - VERY IMPORTANT You must do deep breathing exercises every hour while awake to prevent pneumonia and lung collapse. Rib fractures can cause you to breathe shallowly due to pain, which increases your risk of serious lung complications. - Take 10 slow, deep breaths every hour - Use your incentive spirometer (if provided) as instructed - Cough gently to clear your lungs, holding a pillow against your chest for support - If it hurts too much to breathe deeply, take your pain medication 30 minutes before doing these exercises Activity - Rest for the first few days, but begin gentle movement as soon as possible - Avoid heavy lifting (nothing over 10 pounds) for 6 weeks - Avoid contact sports or activities that could injure your chest - You may return to light activities as tolerated - Gradually increase your activity level as your pain improves What to Watch For - Call 911 or Go to the Emergency Room If: - Increasing shortness of breath or difficulty breathing - Chest pain that is getting worse instead of better - Fever over 100.4?F (38?C) - Coughing up blood - Confusion or extreme drowsiness - Blue or naranjo color to your lips or fingernails When to Call Your Doctor: - Pain that is not controlled with your medications - New or worsening cough - Signs of constipation lasting more than 3 days (common with opioid pain medications) - Any concerns about your recovery Follow-Up Care - Schedule a follow-up appointment with your doctor in 1-2 weeks - You may need a repeat chest X-ray to ensure proper healing Important Reminders - Your rib will take 6-8 weeks to fully heal - Pain typically improves significantly within 2-3 weeks - Plan to reduce and stop your opioid pain medication as your pain improves, typically within 1-2 weeks - Continue ibuprofen as needed for pain even after stopping [place] - Keep all medications in a secure location away from children - Dispose of unused opioid medications properly at a medication take-back location Preventing Constipation Opioid pain medications commonly cause constipation: - Drink plenty of water (8 glasses per day) - Eat high-fiber foods (fruits, vegetables, whole grains) - Consider an [id number] stool softener like docusate (Colace) - Stay as active as possible Print Language: Bengali Coding Level of Care Code ED [employer] Internship for Kassandra Knapp
[2025-10-20 11:36] VITALS: BP 108/73; PULSE 62; RESP 16; O2SAT 94
== END 2025-10-20 11:37 | disposition home or self-care (01) ==
PROVIDERS: Emergency Provider Physician Assistant; PCP Family Medicine
DX: S22.31XA Fracture of one rib, right side, initial encounter for closed fracture (principal); Z87.891 Personal history of nicotine dependence; W50.0XXA Accidental hit or strike by another person, initial encounter
CPT/HCPCS: 71100; 99283